=== PATIENT | male | born 1975 | race African-American/Black ===

== ENCOUNTER 2018-05-10 07:43 | Inpatient (IN) | payer BC, OTHER ==
[2018-05-09 12:29] LABS: ANION GAP 7 mmol/L (5-15); CHLORIDE 109 mmol/L (98-107)
[2018-05-09 12:33] LABS: CALCIUM 9.1 mg/dL (8.5-10.1); CREATININE 1.31 mg/dL (0.7-1.3)
[2018-05-09 12:42] LABS: INTERNATIONAL NORMALIZED RATIO 1.05 (0.93-1.1); PROTHROMBIN TIME 10.9 Seconds (9.6-11.5)
[2018-05-09 12:55] LABS: BASOPHILS # (AUTO) 0.06 x10^3/uL (0-0.1); BASOPHILS % (AUTO) 1 % (0-1); EOSINOPHILS # (AUTO) 0.27 x10^3/uL (0-0.4); EOSINOPHILS % (AUTO) 4 % (1-7); LYMPHOCYTES # (AUTO) 2.71 x10^3/uL (1-3.4); LYMPHOCYTES % (AUTO) 36 % (22-44); MD SCAN; MEAN CORPUSCULAR HEMOGLOBIN 30.4 pg (27.5-34.5); MEAN CORPUSCULAR HGB CONC 34.6 g/dL (33.2-36.2); MEAN CORPUSCULAR VOLUME 87.9 fL (81-97); MEAN PLATELET VOLUME 9.8 fL (7.4-10.4); MONOCYTES # (AUTO) 0.59 x10^3/uL (0.2-0.8); MONOCYTES % (AUTO) 8 % (2-9); NEUTROPHILS # (AUTO) 3.98 x10^3/uL (1.8-6.8); NEUTROPHILS % (AUTO) 52 % (42-75); PLATELET COUNT 200 x10^3/uL (130-400); RED BLOOD COUNT 5.15 x10^6/uL (4.38-5.82); RED CELL DISTRIBUTION WIDTH 12.7 % (9.4-14.8)
[~2018-05-10] VITALS: Ht 190.5 cm; Wt 119.0 kg
[~2018-05-10 07:43] MED LIST: BACITRACIN 50,000 UNIT ONE; BUPIVACAINE/PF-EPI 0.5% 1:200K ONE; HYDR-3307 PO; THROMBIN 20,000 UNIT VIAL TP ONE
[2018-05-10 08:15] VITALS: BP 124/89
[2018-05-10] MEDS ORDERED: LACTATED RINGERS 1,000 ML IV SCH (08:23)
[2018-05-10] MEDS ORDERED: ONDANSETRON ODT 8 MG PO ONE (08:30)
[2018-05-10] MEDS ORDERED: ACETAMINOPHEN 500 MG TABLET PO ONE (08:30)
[2018-05-10] MEDS ORDERED: OxyconTIN ER 20 MG TAB.ER PO ONE (08:30)
[2018-05-10] MEDS ORDERED: GABAPENTIN 300 MG CAPSULE PO ONE (08:30)
[2018-05-10] MEDS ORDERED: PROPOFOL 50 ML ONE (08:59)
[2018-05-10] MEDS ORDERED: MIDAZOLAM 1 MG/ML, 2ML ONE (08:59)
[2018-05-10] MEDS ORDERED: FENTANYL PF 250 MCG/5ML ONE (09:00)
[2018-05-10] MEDS ORDERED: LIDOCAINE-MPF 1%, 2ML INFIL ONE (09:00)
[2018-05-10] MEDS ORDERED: PHENYLEPHRINE 10 MG/ML ONE (09:56)
[2018-05-10] MEDS ORDERED: ROCURONIUM 10 MG/ML,10ML ONE (09:56)
[2018-05-10] MEDS ORDERED: SUCCINYLCHOLINE 20 MG/ML, 10ML ONE (09:56)
[2018-05-10] MEDS ORDERED: EPHEDRINE 50 MG/ML, 1ML ONE (09:56)
[2018-05-10] MEDS ORDERED: KETAMINE 50 MG/ML, 10ML ONE (10:05)
[2018-05-10] MEDS ORDERED: DEXAMETHASONE 4 MG/ML, 1ML ONE (11:00)
[2018-05-10] MEDS ORDERED: CEFAZOLIN 1,000 MG ONE (11:00)
[2018-05-10] MEDS ORDERED: PROPOFOL 10 MG/ML, 20ML ONE ×2 (11:00→11:03)
[2018-05-10] MEDS ORDERED: LABETALOL 5MG/ML, 20ML IV PRN (11:30)
[2018-05-10] MEDS ORDERED: OXYcodone 5 MG/5 ML ORAL.SOL UDC PO PRN (11:30)
[2018-05-10] MEDS ORDERED: hydrALAzine 20 MG/ML, 1ML IV PRN (11:30)
[2018-05-10] MEDS ORDERED: SCOPOLAMINE PATCH, 1.5MG PATCH.TD72 TD PRN (11:30)
[2018-05-10] MEDS ORDERED: MEPERIDINE/PF 25MG/0.5ML IVPush PRN (11:30)
[2018-05-10] MEDS ORDERED: PROMETHAZINE 25 MG/ML, 1ML IV PRN (11:30)
[2018-05-10] MEDS ORDERED: FENTANYL PF 100 MCG/2ML IV PRN (11:30)
[2018-05-10] MEDS ORDERED: ALBUTEROL/IPRATROPIUM 2.5MG/0.5MG, 3 ML NPPB PRN (11:30)
[2018-05-10] MEDS ORDERED: ONDANSETRON ODT 8 MG PO PRN (11:30)
[2018-05-10] MEDS ORDERED: MIDAZOLAM 1 MG/ML, 2ML IV PRN (11:30)
[2018-05-10] MEDS ORDERED: HYDROmorphone 2 MG/ML, 1ML ONE (11:46)
[2018-05-10] MEDS: HYDROmorphone 1 MG/ML, 1ML IV PRN ×2 (11:50→12:20)
[2018-05-10] MEDS: DIAZEPAM 5 MG/ML, 2ML IVPush PRN ×2 (11:58→12:35)
[2018-05-10] MEDS ORDERED: OXYcodone/APAP 5/325MG TABLET PO PRN (14:00)
[2018-05-10] MEDS ORDERED: OXYcodone/APAP 5/325MG TABLET ONE (14:02)
== END 2018-05-10 15:03 | disposition home or self-care (01) | DRG 520 ==
LOC: ORIP 07:43
PROVIDERS: ADMIT Neurological Surgery; ATTEND Neurological Surgery
PROC: 0SB40ZZ Excision of Lumbosacral Disc, Open Approach (ICD-10-PCS; principal; 2018-05-10 10:00)
DX: M51.27 Other intervertebral disc displacement, lumbosacral region (principal)
CPT/HCPCS: 36415; 71046; 72100; 80048; 85025; 85610; 85730; 93005; J0690; J1100; J1170; J2250; J2704; J3010; J3360; J3490; Q0162; J0330; J2370; J7120